=== PATIENT | male | born 1995 | race Two or more races ===

== ENCOUNTER 2024-09-01 14:07 | Emergency (ER) | payer MEDICAID, SELFPAY ==
[2024-09-01 14:20] VITALS: BP 165/98; PULSE 102; RESP 18; TEMP 36.9; O2SAT 96; BMI 56.7
--- NOTE | 2024-09-01 14:22 | EKG_ITS ---
[facility] Test Date: 2024-09-01 Pat Name: ROBBY HERRING Department: Room: - Gender: Male Assistant Media Buyer: : 1995 Requested By: Darnell Prince Order Number: [id number] Reading MD: Darnell Prince Measurements Intervals [place] Rate: 107 P: 36 AL: 150 QRS: -9 QRSD: 86 T: 12 QT: 324 QTc: 434 Interpretive Statements SINUS TACHYCARDIA ABNORMAL RHYTHM ECG Compared to ECG 01/13/2024 15:48:51 Sinus rhythm no longer present /store/S0/[id number].pdf
--- NOTE | 2024-09-01 14:23 | EDRME_ITS ---
Rapid Medical Screening Exam [facility] Arrival date/time: 09/01/24 14:07 29 yo m present to emergency room with c/o chest pain, n/v/d for 1 week I have greeted and performed a focused initial assessment of this patient. A comprehensive ED assessment and evaluation of the patient, analysis of all test results, and completion of the medical decision making process will be conducted by additional ED providers. Chief Complaint: Nausea/Vomiting/Diarrhea Time Seen by Provider: 09/01/24 14:16 Vital signs: Vital Signs Temperature 98.4 F 09/01/24 14:20 Pulse Rate 102 H 09/01/24 14:20 Respiratory Rate 18 09/01/24 14:20 Blood Pressure 165/98 H 09/01/24 14:20 Pulse Oximetry (%) 96 09/01/24 14:20 Oxygen Delivery Method Room Air 09/01/24 14:20
[2024-09-01] MEDS: ONDANSETRON ODT 4 MG TABRAP PO (14:28)
[2024-09-01 15:15] LABS: Basophils # (Auto) 0.1 Thou/mm3 (0.0-0.2); Basophils % (Auto) 1 % (0-2.5); Eosinophils # (Auto) 0.5 Thou/mm3 (0.0-0.5); Eosinophils % (Auto) 4 % (0-10); Hematocrit 42.6 % (41.0-53.0); Hemoglobin 13.9 g/dL (13.5-16.0); Immature Granulocytes % (Auto) 1 % (0-0); Immature Granulocytes Auto 0.15 Thou/mm3 (0.00-0.00); Lymphocytes # (Auto) 2.6 Thou/mm3 (1.0-4.8); Lymphocytes % (Auto) 21 % (10-50); Mean Corpuscular HGB Conc 32.6 g/dl (31.0-37.0); Mean Corpuscular Hemoglobin 28.5 pg (25.0-35.0); Mean Corpuscular Volume 87 fL (80-100); Monocytes % (Auto) 8 % (0-12); Neutrophils # (Auto) 8.1 Thou/mm3 (1.8-7.7); Neutrophils % (Auto) 65 % (37-80); Nucleated Red Blood Cell % 0 /100 WBC (0); Platelet Count 364 Thou/mm3 (140-440); RDW Standard Deviation 43.7 fL (35.1-43.9); Red Blood Count 4.88 Miln/mm3 (4.50-5.90); White Blood Count 12.4 Thou/mm3 (3.8-10.6)
[2024-09-01 15:26] LABS: Strep A Rapid Negative (Negative)
[2024-09-01 15:35] LABS: Alanine Aminotransferase 38 U/L (10-49); Albumin, Serum 4.3 gm/dL (3.5-5.0); Albumin/Globulin Ratio 1.4 (1.2-2.2); Alkaline Phosphatase 91 U/L (46-116); Anion Gap 7 (7-16); Aspartate Amino Transferase 24 U/L (0-34); BUN/Creatinine Ratio 14 Ratio (12-20); Bilirubin,Total 1.1 mg/dL (0.3-1.2); Blood Urea Nitrogen 13 mg/dL (9-23); Calcium 8.7 mg/dL (8.3-10.6); Calcium (Corrected) 8.7 mg/dL (8.5-10.1); Carbon Dioxide 30.4 mMol/L (20.0-31.0); Chloride 102 mMol/L (98-107); Creatinine (Component) 0.9 mg/dL (0.6-1.3); Estimated Creatinine Clearance 182.1 mL/min (>60); Globulin 3.1 gm/dL (2.3-3.5); Glucose 104 mg/dL (74-106); Lipase 29 U/L (12-53); Osmolality,Calculated 277 (275-295); Potassium 3.9 mMol/L (3.4-5.1); Sodium 139 mMol/L (136-145); Total Protein 7.4 gm/dL (5.7-8.2); Troponin I < 0.002 ng/mL (0.0-0.045); eGFR > 60 See Note
[2024-09-01 16:28] VITALS: BP 153/84; PULSE 87; RESP 18; TEMP 36.6; O2SAT 98
--- NOTE | 2024-09-01 16:34 | EDNOTE_ITS ---
Nausea/Vomit./Diarrhea-RME/HPI General Chief complaint: Nausea/Vomiting/Diarrhea Stated complaint: Vomiting X 1 week, nausea Time Seen by Provider: 09/01/24 14:16 Arrival date/time: 09/01/24 14:07 29 year old male present to emergency room with c/o of intermittent nausea,vomiting for 1 week LOCATION: generalized periumbical abdominal pain SEVERITY: Symptoms are described as being severe with limitations on activities of daily living QUALITY: Symptoms are described as being cramping CONTEXT: The patient is unable to identify any inciting events. DURATION/TIMING: The symptoms started approximately 7 day ago and have been constant this then, and have been progressive getting worse. ASSOCIATED SYMPTOMS: The patient is unable to identify any other associated symptoms. MODIFYING FACTORS: The patient is unable to identify any alleviating or aggravating symptoms. PERTINENT ROS: reports emesis is nonbloody, diarrhea is nonbloody, no recent foreign travel, no recent ingestion of raw seafood or meat, no head trauma, no headache, no chest pain, no orthostatis symptoms, denies any focal abdominal pain, denies any toxicological ingestions REVIEW OF SYSTEMS: See History of Present Illness - with the exception of those mentioned in the history of present illness, all other systems reviewed and repo rted as negative GENERAL: In general the patient is awake, interactive, in an emergency department gurney. HEAD/EYES/EARS/NOSE/THROAT: normo-cephalic, atraumatic, mucus membranes are moist, anicteric, palpebral conjunctiva is pink, trachea is midline. CARDIOVASCULAR: regular rate and regular rhythm, no murmurs, heart sounds are not distant, strong pulses in all four extremities that are equal and symmetric bilateral upper and lower extremities, normal capillary refill. CHEST/PULMONARY: normal chest rise and fall, good air movement, clear to auscultation bilaterally, normal inspiratory to expiratory ratios without evidence of respiratory distress. NECK: No midline/Paraspinal tenderness, no step off ROM/Strenght intact No Kernig and bruzinski sign. No trauma ABDOMEN: soft, not tender, no masses appreciated BACK: normal range of motion without pain. NEUROLOGICAL: cranio-facial features are symmetric, moves all four extremities equally without obvious limitations or weakness. EXTREMITY: no tenderness to palpation over the long bones or large joints of the bilateral upper and lower extremities, no joint swelling, no joint erythema, no signs of trauma, no unilateral leg swelling and no peripheral edema. SKIN: warm, dry, well-perfused, no jaundice, no rash, no telangiectasias or petechia. PSYCH: calm, cooperative, no evidence of psychosis or agitation RME / HPI RME / HPI Narrative: 09/01/24 14:07 29 yo m present to emergency room with c/o chest pain, n/v/d for 1 week I have greeted and performed a focused initial assessment of this patient. A comprehensive ED assessment and evaluation of the patient, analysis of all test results, and completion of the medical decision making process will be conducted by additional ED providers. Related Data Previous Rx's ?Medication ?Instructions ?Recorded amoxicillin 875 mg-potassium 1 tab PO Q12H #10 tabs clavulanate 125 mg tablet doxycycline monohydrate 100 mg 100 mg PO BID #10 caps 05/04/24 capsule Allergies Allergy/AdvReac Type Severity Reaction Status Date / Time No Known Allergies Allergy Verified 05/04/24 19:11 Course Course Course Narrative: Patient presenting with nausea, vomiting, and diarrhea.? Vital signs were reviewed.? Patient afebrile.? Abdominal exam is benign.? No evidence of acute surgical emergency or infection requiring antibiotics.? I considered biliary disease, bowel obstruction, colitis, mesenteric ischemia, appendicitis, urinary tract infection, infectious diarrhea, however, these are less likely given the history and exam.? While in ED patient was provided with zofran at which point patient stated that their symptoms had improved.. Advised to continue Ibuprofen and Tylenol at home as needed for pain/fever. Patient is to followup with primary physician if symptoms continue. Advised to return to the ER if concern for inability to tolerate PO intake, dehydration, or other concerns. Plan:?? Discharge from ETC Ibuprofen/Acetaminophen for Pain/Fever Pt was advised on supportive therapies, including increasing dietary fiber, eating smaller meals, refrain from eating copious amounts of irritating foods (fatty foods, milk products, chocolate, and caffeine), maintaining a food diary, advancing fluids as tolerated, refraining from EtOH consumption, decreasing stress, and increasing exercise. Maintain Fluid Intake: Pedialyte/Gatorade, Juice, Non-caffeinated Pop (Sprite) Patient to follow up with PCP or in ER should symptoms worsen or not improve. Patient verbally expressed understanding and all questions were addressed. Quality Measures none Orders Category Date Time Status Bedside Influenza A&B Antigen Test NOW Care 09/01/24 14:23 Completed EKG (ED ONLY) *Do not use* NOW Care 09/01/24 14:22 Completed EKG (ED Only) Stat Exams 09/01/24 14:22 Draft CBC Stat Lab 09/01/24 15:01 Completed CMP [Comprehensive Metabolic Panel] Stat Lab 09/01/24 15:01 Completed Lipase Stat Lab 09/01/24 15:01 Completed Strep A Rapid Stat Lab 09/01/24 14:47 Completed Troponin I Stat Lab 09/01/24 15:01 Completed Ondansetron Odt [Zofran Odt] Med 09/01/24 14:22 Discontinued 4 mg PO X1 ONE Vital Signs Vital signs: Vital Signs Temperature 98.4 F 09/01/24 14:20 Pulse Rate 102 H 09/01/24 14:20 Respiratory Rate 18 09/01/24 14:20 Blood Pressure 165/98 H 09/01/24 14:20 Pulse Oximetry (%) 96 09/01/24 14:20 Oxygen Delivery Method Room Air 09/01/24 14:20 Procedures -ED EKG Interpretation #1: Date of EK09/01/24 Rate: 107 Interpretation: Reviewed by me EKG Impression: No ischemic changes and Sinus tachycardia Nausea/Vomiting/Diarrhea Patient data External records reviewed:: [facility] previous records Clinical information provided by:: patient Social determinants that could affect healthcare access:: none Patient has the following chronic illnesses:: mpme How is presenting disease/condition affected by chronic disease/condition?: no chronic disease Evaluation data The following diagnostics were reviewed and interpreted by me:: lab results Lab and/or radiology exams considered but not ordered:: none Interpretation Summary: cbc/cmp/trop wnl limits Medications / Prescriptions Medications / Prescriptions considered but not ordered:: none Medication administrations:: Medication Administration History Discontinued Medications Ondansetron HCl (Ondansetron Odt 4 Mg Tabrap) 4 mg PO X1 ONE; Protocol Stop: 09/01/24 14:23 Last Admin: 09/01/24 14:28 Dose: 4 mg Documented By: OA as stated above Consultations Consultation(s) initiated? (list below): No Diagnosis Nausea Differential Diagnosis: traveler's diarrhea, food poisoning, gastroenteritis and dehydration Most likely diagnosis given after review of the tests above:: gastroenteritis Admission Indicated Admission indicated?: not indicated Admission Request Was there a request for admission?: No Disposition Plan Disposition Plan: Discharge Discharge Attestation Discharge Attestation: The patient and all family members were given an opportunity to ask questions and understood the discharge instructions. Discharge instructions specifically effects, indications for sooner follow up or return to the emergency department, and the expected course of current diagnosis. Patient condition: Stable Discharge Plan Plan Patient Disposition: HOME (Self Care) Health Concerns: Follow with PMD as directed Take tylenol or motrin as need Return to ED if sx worsen Prescriptions/Referrals Prescriptions/Med Rec: No Action amoxicillin-pot clavulanate 875-125 mg tablet 1 tab PO Q12H Qty: 10 0RF doxycycline monohydrate 100 mg capsule 100 mg PO BID Qty: 10 0RF Problem List Clinical Impression: Gastroenteritis Patient/Caregiver Discharge Instructions Education Materials: ED Gastroenteritis, Noninfectious Print Language: Indonesian Stand Alone Forms: Araceli Award Info., Patient Portal Info Letter
== END 2024-09-01 17:21 | disposition home or self-care (01) ==
PROVIDERS: Physician Assistant; Emergency Provider Emergency Medicine; PCP Nurse Practitioner Pediatrics
DX: K52.9 Noninfective gastroenteritis and colitis, unspecified (principal)
CPT/HCPCS: 36415; 80053; 83690; 84484; 85025; 87400; 87651; 93005; 99283; Q0162

== ENCOUNTER 2024-10-14 14:00 | Emergency (ER) | payer MEDICAID, SELFPAY ==
[2024-10-14 14:15] VITALS: BP 160/96; PULSE 105; RESP 18; TEMP 36.9; O2SAT 95; BMI 56.7
[2024-10-14 14:41] LABS: Collection Type, Urine Clean Catch
[2024-10-14 14:47] LABS: Bilirubin,Urine Negative (Negative); Blood,Urine Negative (Negative); Clarity,Urine Clear (Clear/Hazy); Color,Urine Lt-Yellow (Lt Yel-Yel); Culture Indicated,Urine Not Indicated; Glucose, Urine Negative (Negative); Ketones,Urine Negative (Negative); Leukocyte Esterase,Urine Negative (Negative); Nitrite,Urine Negative (Negative); PH,Urine 6.5 (5.0-7.0); Protein,Urine Negative (Neg - Trace); RBC,Urine < 1 /hpf (0-3); Specific Gravity,Urine 1.022 (1.001-1.035); Squamous Epithelial Cell,Urine < 1 /hpf (0-5); Urobilinogen,Urine Negative mg/dL (0.0-1.0); WBC,Urine 1 /hpf (0-5)
[2024-10-14 15:00] LABS: Strep A Rapid Negative (Negative)
[2024-10-14 15:04] LABS: Basophils # (Auto) 0.1 Thou/mm3 (0.0-0.2); Basophils % (Auto) 1 % (0-2.5); Eosinophils # (Auto) 0.5 Thou/mm3 (0.0-0.5); Eosinophils % (Auto) 5 % (0-10); Hematocrit 44.2 % (41.0-53.0); Immature Granulocytes % (Auto) 1 % (0-0); Immature Granulocytes Auto 0.15 Thou/mm3 (0.00-0.00); Lymphocytes # (Auto) 2.1 Thou/mm3 (1.0-4.8); Lymphocytes % (Auto) 20 % (10-50); Mean Corpuscular HGB Conc 31.7 g/dl (31.0-37.0); Mean Corpuscular Hemoglobin 27.9 pg (25.0-35.0); Mean Corpuscular Volume 88 fL (80-100); Monocytes # (Auto) 0.9 Thou/mm3 (0.0-0.8); Monocytes % (Auto) 9 % (0-12); Neutrophils # (Auto) 6.9 Thou/mm3 (1.8-7.7); Neutrophils % (Auto) 65 % (37-80); Nucleated Red Blood Cell % 0 /100 WBC (0); Platelet Count 348 Thou/mm3 (140-440); RDW Standard Deviation 44.4 fL (35.1-43.9); Red Blood Count 5.01 Miln/mm3 (4.50-5.90); White Blood Count 10.7 Thou/mm3 (3.8-10.6)
[2024-10-14 15:48] LABS: Alanine Aminotransferase 34 U/L (10-49); Albumin, Serum 4.1 gm/dL (3.5-5.0); Albumin/Globulin Ratio 1.4 (1.2-2.2); Alkaline Phosphatase 102 U/L (46-116); Anion Gap 7 (7-16); Aspartate Amino Transferase 21 U/L (0-34); BUN/Creatinine Ratio 13 Ratio (12-20); Bilirubin,Total 0.6 mg/dL (0.3-1.2); Blood Urea Nitrogen 12 mg/dL (9-23); Calcium 8.4 mg/dL (8.3-10.6); Calcium (Corrected) 8.4 mg/dL (8.5-10.1); Carbon Dioxide 27.7 mMol/L (20.0-31.0); Chloride 104 mMol/L (98-107); Creatinine (Component) 0.9 mg/dL (0.6-1.3); Estimated Creatinine Clearance 193.7 mL/min (>60); Glucose 118 mg/dL (74-106); Lipase 31 U/L (12-53); Osmolality,Calculated 278 (275-295); Potassium 4.1 mMol/L (3.4-5.1); Sodium 139 mMol/L (136-145); Total Protein 7.1 gm/dL (5.7-8.2); eGFR > 60 See Note
--- NOTE | 2024-10-14 15:54 | PD.EDADULT ---
ED General RME/HPI General Chief complaint: Nausea/Vomiting/Diarrhea Stated complaint: N/V/D, SORE THROAT, BODY ACHES X 2 DAYS Time Seen by Provider: 10/14/24 14:09 Arrival date/time: 10/14/24 14:00 29-year-old male presents to the emergency department today complaints of nausea vomiting generalized bodyaches and headache Limitations: no limitations Related Data Previous Rx's ?Medication ?Instructions ?Recorded amoxicillin 875 mg-potassium 1 tab PO Q12H #10 tabs 05/04/24 clavulanate 125 mg tablet doxycycline monohydrate 100 mg 100 mg PO BID #10 caps 05/04/24 capsule ibuprofen 800 mg tablet 800 mg PO TID PRN pain #30 tabs 10/14/24 ondansetron 4 mg disintegrating 4 mg PO Q8H PRN nausea and 10/14/24 tablet vomiting #10 tabs Allergies Allergy/AdvReac Type Severity Reaction Status Date / Time No Known Allergies Allergy Verified 10/14/24 14:05 Review of Systems Review of Systems Systems Reviewed: All systems reviewed, normal except as documented Constitutional Constitutional: Reports system reviewed and no additional complaints, except as documented, Reports body ache(s), Denies fever(s) and Reports headache(s) Eyes Eyes: Reports system reviewed and no additional complaints, except as documented and Denies blurry vision ENT Ears, Nose, Mouth, and Throat: Reports system reviewed and no additional complaints, except as documented, Reports headache(s), Denies nasal congestion and Denies nasal discharge Cardiovascular Cardiovascular: Reports system reviewed and no additional complaints, except as documented, Denies chest pain and Denies dyspnea Respiratory Respiratory: Reports system reviewed and no additional complaints, except as documented, Denies chest congestion, Denies cough and Denies dyspnea Gastrointestinal Gastrointestinal: Reports system reviewed and no additional complaints, except as documented, Reports abdominal pain, Reports loose stools and Reports nausea Integumentary/Breasts Skin/Breast: Reports system reviewed and no additional complaints, except as documented and Denies rash Neurologic Neurologic: Reports system reviewed and no additional complaints, except as documented, Reports as per HPI and Reports headache(s) Past Medical History Past Medical History CARDIAC: Negative Cardiac Disorders RESPIRATORY: Negative Asthma GENITOURINARY: Negative Renal Disease ENDOCRINE: Negative Diabetes Mellitus Type 2 HEMATOLOGIC: Negative Sickle Cell Disease Social History SMOKING STATUS: Current some day smoker SUBSTANCE USE: does not use ED Exam General Limitations: Present no limitations General appearance: Present alert and in no apparent distress Head Head exam: Present atraumatic Eye Eye exam: Present normal appearance, PERRL and EOMI ENT ENT exam: Present normal exam, normal oropharynx and mucous membranes moist Neck Neck exam: Present normal inspection, full ROM and trachea midline Chest Chest inspection: Present normal inspection and symmetric chest wall rise Respiratory Respiratory exam: Present normal lung sounds bilaterally Cardiovascular Cardiovascular exam: Present regular rate, normal rhythm and normal heart sounds Abdominal Exam Abdominal exam: Present soft and normal bowel sounds; Absent distention, tenderness, guarding, rebound, rigidity, Mitchell's sign or tenderness at McBurney's Point Abdominal tenderness: Absent RUQ or RLQ Extremities Exam Extremities exam: Present normal inspection and full ROM Back Exam Back exam: Present normal inspection and full ROM Neurological Exam Neurological exam: Present alert, oriented X3 and CN II-XII intact Psychiatric Psychiatric exam: Present normal affect and normal mood Skin Skin exam: Present warm, dry, intact and normal color Course Quality Measures none Orders Category Date Time Status Bedside Influenza A&B Antigen Test NOW Care 10/14/24 14:19 Completed CBC Stat Lab 10/14/24 14:50 Completed Comprehensive Metabolic Panel Stat Lab 10/14/24 14:50 Completed Lipase Stat Lab 10/14/24 14:50 Completed Strep A Rapid Stat Lab 10/14/24 14:37 Completed UA, C/S IF [Urinalysis, C/S if Indicated] Stat Lab 10/14/24 14:30 Completed Vital Signs Vital signs: Vital Signs Temperature 98.4 F 10/14/24 14:15 Pulse Rate 105 H 10/14/24 14:15 Respiratory Rate 18 10/14/24 14:15 Blood Pressure 160/96 H 10/14/24 14:15 Pulse Oximetry (%) 95 10/14/24 14:15 Oxygen Delivery Method Room Air 10/14/24 14:15 O2 saturation 95% room air within normal limits MDM Patient data External records reviewed:: [facility] previous records Clinical information provided by:: patient Social determinants that could affect healthcare access:: none Patient has the following chronic illnesses:: None How is presenting disease/condition affected by chronic disease/condition?: no chronic disease Evaluation data The following diagnostics were reviewed and interpreted by me:: lab results and radiology exam(s) Lab and/or radiology exams considered but not ordered:: Labs obtained Interpretation Summary: Review I Medications Medications considered but not ordered:: Given Medication administrations:: Given Consultations Consultation(s) initiated? (list below): No Diagnosis Differential Diagnosis ED Complaint MDM: Viral illness, influenza Most likely diagnosis given after review of the tests above:: Viral illness influenza Admission Indicated Admission indicated?: not indicated Explain why admission is indicated or not indicated:: No criteria Admission Request Was there a request for admission?: No Disposition Plan Disposition Plan: Discharge Discharge Attestation Discharge Attestation: The patient and all family members were given an opportunity to ask questions and understood the discharge instructions. Discharge instructions specifically effects, indications for sooner follow up or return to the emergency department, and the expected course of current diagnosis. Patient condition: Stable Medical Decision Making MDM Narrative MDM Narrative: 29-year-old male presents to the emergency department today complaints of nausea vomiting generalized bodyaches and headache On exam patient well-appearing patient is not appear ill or toxic patient does not appear in acute distress On exam patient is nontender abdomen Lab work obtained is unremarkable Patient tested positive for influenza which is consistent with her symptoms Patient discharged home in no distress to follow-up with primary care doctor in the next 24 to 48 hours and for any worsening symptoms to return to the ER immediately Differential Diagnosis Differential Diagnosis: Viral illness, influenza Medical Records Medical records reviewed: Yes I reviewed the patient's medical records. Lab Data Lab results reviewed: Yes I reviewed the patient's lab results. 10/14/24 14:50 10/14/24 14:50 Labs: Lab Results 10/14/24 10/14/24 10/14/24 Range/Units 14:30 14:37 14:50 WBC 10.7 H (3.8-10.6) Thou/mm3 RBC 5.01 (4.50-5.90) Miln/mm3 Hgb 14.0 (13.5-16.0) g/dL Hct 44.2 (41.0-53.0) % MCV 88 (80-100) fL MCH 27.9 (25.0-35.0) pg MCHC 31.7 (31.0-37.0) g/dl RDW Std Deviation 44.4 H (35.1-43.9) fL Plt Count 348 (140-440) Thou/mm3 Neut % (Auto) 65 (37-80) % Lymph % (Auto) 20 (10-50) % [place] % (Auto) 9 (0-12) % Eos % (Auto) 5 (0-10) % Baso % (Auto) 1 (0-2.5) % Neut # (Auto) 6.9 (1.8-7.7) Thou/mm3 Lymph # (Auto) 2.1 (1.0-4.8) Thou/mm3 [place] # (Auto) 0.9 H (0.0-0.8) Thou/mm3 Eos # (Auto) 0.5 (0.0-0.5) Thou/mm3 Baso # (Auto) 0.1 (0.0-0.2) Thou/mm3 Immature Gran # (Auto) 0.15 H (0.00-0.00) Thou/mm3 Absolute Nucleated RBC 0.00 (0.00-0.00) Thou/mm3 Immature Gran % 1 H (0-0) % Nucleated RBC % 0 (0) /100 WBC Sodium 139 (136-145) mMol/L Potassium 4.1 (3.4-5.1) mMol/L Chloride 104 (98-107) mMol/L Carbon Dioxide 27.7 (20.0-31.0) mMol/L Anion Gap 7 (7-16) BUN 12 (9-23) mg/dL Creatinine 0.9 (0.6-1.3) mg/dL Estim Creat Clear Calc 193.7 (>60) mL/min eGFR > 60 (60 - ) See Note BUN/Creatinine Ratio 13 (12-20) Ratio Glucose 118 H (74-106) mg/dL Calculated Osmolality 278 (275-295) Calcium 8.4 (8.3-10.6) mg/dL Corrected Calcium 8.4 L (8.5-10.1) mg/dL Total Bilirubin 0.6 (0.3-1.2) mg/dL AST 21 (0-34) U/L ALT 34 (10-49) U/L Alkaline Phosphatase 102 (46-116) U/L Total Protein 7.1 (5.7-8.2) gm/dL Albumin 4.1 (3.5-5.0) gm/dL Globulin 3.0 (2.3-3.5) gm/dL Albumin/Globulin Ratio 1.4 (1.2-2.2) Lipase 31 (12-53) U/L Ur Collection Type Clean Catch Urine Color Lt-Yellow (Lt Yel-Yel) Urine Clarity Clear (Clear/Hazy) Urine pH 6.5 (5.0-7.0) Ur Specific [place] 1.022 (1.001-1.035) Urine Protein Negative (Neg - Trace) Urine Glucose (UA) Negative (Negative) Urine Ketones Negative (Negative) Urine Blood Negative (Negative) Urine Nitrite Negative (Negative) Urine Bilirubin Negative (Negative) Urine Urobilinogen (Auto) Negative (0.0-1.0) mg/dL Ur Leukocyte Esterase Negative (Negative) Urine RBC < 1 (0-3) /hpf Urine WBC 1 (0-5) /hpf Ur Squamous Epith Cells < 1 (0-5) /hpf Urine Bacteria None (None) Ur Culture Indicated? Not Indicated Group A Strep Rapid Negative (Negative) Discharge Plan Plan Patient Disposition: HOME (Self Care) Disposition Comment: Stable Prescriptions/Referrals Prescriptions/Med Rec: New ibuprofen 800 mg tablet 800 mg PO TID PRN (Reason: pain) Qty: 30 0RF ondansetron 4 mg tablet,disintegrating 4 mg PO Q8H PRN (Reason: nausea and vomiting) Qty: 10 0RF No Action amoxicillin-pot clavulanate 875-125 mg tablet 1 tab PO Q12H Qty: 10 0RF doxycycline monohydrate 100 mg capsule 100 mg PO BID Qty: 10 0RF Referrals: No Primary/Family,Physician [Primary Care Provider] - In 1 week Problem List Clinical Impression: Influenza Patient/Caregiver Discharge Instructions Education Materials: ED Influenza (Adult) Additional Instructions: Please follow up with your primary care doctor in the next 24-48hrs for any worsening symptoms return here immediately Print Language: Danish Stand Alone Forms: Araceli Award Info., Work/School Release, Patient Portal Info Letter PA/HYDRAULIC SPECIALIST Supervising Physician PA/HYDRAULIC SPECIALIST Supervising Physician: Dr. [email or web address]
== END 2024-10-14 15:59 | disposition home or self-care (01) ==
PROVIDERS: Nurse Practitioner Primary Care; Emergency Provider Family Medicine
DX: J11.1 Influenza due to unidentified influenza virus with other respiratory manifestations (principal)
CPT/HCPCS: 36415; 80053; 81001; 83690; 85025; 87400; 87651; 99283

== ENCOUNTER 2024-12-02 15:55 | Emergency (ER) | payer MEDICAID, SELFPAY ==
[2024-12-02 15:56] VITALS: BMI 58.2
[2024-12-02 16:38] VITALS: BP 159/86; PULSE 105; RESP 20; TEMP 36.8; O2SAT 96
--- NOTE | 2024-12-02 16:53 | PD.EDRME ---
Rapid Medical Screening Exam [facility] Arrival date/time: 12/02/24 15:55 29-year-old male presents to the emergency department today for complaints of suicidal ideations patient reports that he has guns in his house patient states he has contemplated suicide Chief Complaint: Depression Vital signs: Vital Signs Temperature 98.3 F 12/02/24 16:38 Pulse Rate 105 H 12/02/24 16:38 Respiratory Rate 20 12/02/24 16:38 Blood Pressure 159/86 H 12/02/24 16:38 Pulse Oximetry (%) 96 12/02/24 16:38 Oxygen Delivery Method Room Air 12/02/24 16:38
[2024-12-02 17:56] LABS: Basophils # (Auto) 0.1 Thou/mm3 (0.0-0.2); Basophils % (Auto) 1 % (0-2.5); Eosinophils # (Auto) 0.5 Thou/mm3 (0.0-0.5); Eosinophils % (Auto) 4 % (0-10); Hematocrit 45.9 % (41.0-53.0); Hemoglobin 14.9 g/dL (13.5-16.0); Immature Granulocytes % (Auto) 1 % (0-0); Immature Granulocytes Auto 0.11 Thou/mm3 (0.00-0.00); Lymphocytes % (Auto) 22 % (10-50); Mean Corpuscular HGB Conc 32.5 g/dl (31.0-37.0); Mean Corpuscular Hemoglobin 28.7 pg (25.0-35.0); Mean Corpuscular Volume 88 fL (80-100); Monocytes # (Auto) 1.3 Thou/mm3 (0.0-0.8); Monocytes % (Auto) 9 % (0-12); Neutrophils # (Auto) 8.8 Thou/mm3 (1.8-7.7); Neutrophils % (Auto) 64 % (37-80); Nucleated Red Blood Cell % 0 /100 WBC (0); Platelet Count 407 Thou/mm3 (140-440); RDW Standard Deviation 45.4 fL (35.1-43.9); White Blood Count 13.7 Thou/mm3 (3.8-10.6)
[2024-12-02 18:06] LABS: Alcohol, Urine Negative (Negative); Amphetamine/Methamp Scrn,U Negative (Negative); Barbiturate Screen,Urine Negative (Negative); Benzodiazepines Screen,Urine Negative (Negative); Benzoylecgonine Screen, Ur Negative (Negative); Fentanyl Screen,Urine Negative (Negative); Opiate Screen,Urine Negative (Negative); THC Screen,Urine Negative (Negative)
[2024-12-02 18:20] LABS: Alanine Aminotransferase 63 U/L (10-49); Albumin, Serum 4.6 gm/dL (3.5-5.0); Albumin/Globulin Ratio 1.5 (1.2-2.2); Alkaline Phosphatase 92 U/L (46-116); Anion Gap 6 (7-16); Aspartate Amino Transferase 33 U/L (0-34); BUN/Creatinine Ratio 10 Ratio (12-20); Bilirubin,Total 0.9 mg/dL (0.3-1.2); Blood Urea Nitrogen 10 mg/dL (9-23); Calcium 8.8 mg/dL (8.3-10.6); Calcium (Corrected) 8.8 mg/dL (8.5-10.1); Carbon Dioxide 29.5 mMol/L (20.0-31.0); Chloride 105 mMol/L (98-107); Estimated Creatinine Clearance 156.2 mL/min (>60); Globulin 3.1 gm/dL (2.3-3.5); Glucose 92 mg/dL (74-106); Osmolality,Calculated 278 (275-295); Potassium 4.5 mMol/L (3.4-5.1); Sodium 140 mMol/L (136-145); Total Protein 7.7 gm/dL (5.7-8.2); eGFR > 60 See Note
--- NOTE | 2024-12-02 19:25 | EDNOTE_ITS ---
ED Psych RME/HPI General Chief Complaint: Depression Stated Complaint: SUICIDAL THOUGHT Time Seen by Provider: 12/02/24 23:16 Arrival date/time: 12/02/24 15:55 RME / HPI RME / HPI Narrative: 12/02/24 15:55 29-year-old male presents to the emergency department today for complaints of suicidal ideations patient reports that he has guns in his house patient states he has contemplated suicide --------- Dr. Lemus?s Main ED Evaluation: 29yo male presents to the ED for a chief complaint of SI. Patient states his dad in January of last year and has since been depressed. Patient states he's been having thought of SI since then, reporting they've persisted and gotten significantly worse, so he came in for evaluation. Patient does not have an active plan. Patient denies any HI or hallucinations. He denies overdosing on any medications. Related Data Previous Rx's ?Medication ?Instructions ?Recorded amoxicillin 875 mg-potassium 1 tab PO Q12H #10 tabs clavulanate 125 mg tablet doxycycline monohydrate 100 mg 100 mg PO BID #10 caps 05/04/24 capsule ibuprofen 800 mg tablet 800 mg PO TID PRN pain #30 t abs 10/14/24 ondansetron 4 mg disintegrating 4 mg PO Q8H PRN nausea and 10/14/24 tablet vomiting #10 tabs Allergies Allergy/AdvReac Type Severity Reaction Status Date / Time No Known Allergies Allergy Verified 12/02/24 15:58 Review of Systems Review of Systems Systems Reviewed: All systems reviewed, normal except as documented Past Medical History Past Medical History CARDIAC: Negative Cardiac Disorders RESPIRATORY: Negative Asthma GENITOURINARY: Negative Renal Disease ENDOCRINE: Negative Diabetes Mellitus Type 2 HEMATOLOGIC: Negative Sickle Cell Disease Social History SMOKING STATUS: Current some day smoker SUBSTANCE USE: does not use ED Exam Narrative Physical exam: GENERAL APPEARANCE: alert and oriented x 4, well-developed, well-nourished, no acute distress VITALS: All vitals were reviewed and the pulse ox is 96% on room air, which is normal according to my interpretation. HEENT: normocephalic, atraumatic NECK: supple LUNGS: no respiratory distress, normal effort HEART: good peripheral perfusion ABDOMEN: non distended EXTREMITIES: atraumatic NEUROLOGIC: awake; alert and oriented x4; cranial nerves II-XII grossly intact PSYCHIATRIC: depressed mood and affect SKIN: warm, dry, normal color; no rashes Course Quality Measures none Orders Category Date Time Status 1799 Psychiatric Hold NOW Care 12/03/24 00:15 Ordered Consult [employer] NOW Care 12/02/24 16:53 Active Acetaminophen Stat Lab 12/02/24 17:46 Completed Alcohol, Urine Stat Lab 12/02/24 17:17 Completed CBC Stat Lab 12/02/24 17:46 Completed CMP [Comprehensive Metabolic Panel] Stat Lab 12/02/24 17:46 Completed Drug Screen,Urine Stat Lab 12/02/24 17:17 Completed Salicylate Stat Lab 12/02/24 17:46 Completed Vital Signs Vital signs: Vital Signs Temperature 98.3 F 12/02/24 16:38 Pulse Rate 105 H 12/02/24 16:38 Respiratory Rate 20 12/02/24 16:38 Blood Pressure 159/86 H 12/02/24 16:38 Pulse Oximetry (%) 96 12/02/24 16:38 Oxygen Delivery Method Room Air 12/02/24 16:38 Psych MDM Narrative MDM Narrative:: Scribe Attestation: 12/02/24 Rachna Gaytan am scribing for and in the presence of Dr. Lemus. Patient first seen at 2320. Observation began at 2320 and was necessary in order to determine if the patient can be medically clear for crisis evaluation. Patient placed on a 1799 hold. Patient is medically clear for crisis evaluation. Upon reevaluation, observation revealed that the patient should be held in the ED until crisis evaluation in the morning. Observation time ended at 0600. Total time of observation: 6.5 hours. 0600: Care signed out to Dr. Whyte (emergency physician). Past medical, surgical, social and family history reviewed. Vitals and home medications reviewed. Results and treatment plan discussed. They will assume the care of the patient at this time and will follow the patient, pending crisis evaluation. Patient data External records reviewed:: [facility] previous records (Per chart review, patient was seen here on 10/14/24 for Influenza.) Clinical information provided by:: patient Social determinants that could affect healthcare access:: mental health Patient has the following chronic illnesses:: none How is presenting disease/condition affected by chronic disease/condition?: no chronic disease Evaluation data The following diagnostics were reviewed and interpreted by me:: lab results Lab and/or radiology exams considered but not ordered:: none Interpretation Summary: CMP is normal, UDS is negative, Acetaminophen is negative, Urine Alcohol is negative, according to my interpretation. Medications / Prescriptions Medications or Prescriptions considered but not ordered:: none Medication administrations:: none Consultations Consultation(s) initiated? (list below): No Diagnosis Psych Differential Diagnosis: suicidal ideation, depression and other (drug use, grief reaction) Most likely diagnosis given after review of the tests above:: see clinical impression below Admission Indicated Admission indicated?: not indicated Admission Request Was there a request for admission?: No Disposition Plan Disposition Plan: other (specify) (Signed out to Dr. Whyte at 0600 pending crisis evaluation.) Discharge Plan Prescriptions/Referrals Prescriptions/Med Rec: No Action ibuprofen 800 mg tablet 800 mg PO TID PRN (Reason: pain) Qty: 30 0RF ondansetron 4 mg tablet,disintegrating 4 mg PO Q8H PRN (Reason: nausea and vomiting) Qty: 10 0RF amoxicillin-pot clavulanate 875-125 mg tablet 1 tab PO Q12H Qty: 10 0RF doxycycline monohydrate 100 mg capsule 100 mg PO BID Qty: 10 0RF Referrals: No Primary/Family,Physician [Primary Care Provider] - In 1 week Problem List Clinical Impression: Suicidal ideation Patient/Caregiver Discharge Instructions Print Language: Sami
[2024-12-02 20:10] LABS: Acetaminophen < 2.0 mcg/mL (10.0-20.0); Salicylate < 3.0 mg/dL
[2024-12-02 20:58] VITALS: BP 132/83; PULSE 94; RESP 19; TEMP 36.6; O2SAT 97
[2024-12-03 06:00] VITALS: BP 148/89; PULSE 91; RESP 18; TEMP 36.6; O2SAT 96
[2024-12-03 07:58] VITALS: BP 135/77; PULSE 101; RESP 16; TEMP 36.6; O2SAT 98
--- NOTE | 2024-12-03 08:41 | EDNOTE_ITS ---
Emergency Room Addendum Addendum Narrative: 0600: Care assumed from Dr. Lemus, the previous shift emergency physician. Past medical, surgical, social and family history reviewed. Vitals and home medications reviewed. I will assume the care of the patient at this time, pending mental health evaluation. Patient has been medically cleared by previous physician. Please refer to the emergency department record for history and examination from initial visit.?The following addendum documentation note is intended to reflect any pending information, findings, or radiology results not included in the patient?s initial chart. 1040: ASW has met with the patient and has cleared to go home, safety plan was made with . States patient has an appointment scheduled with Dr. De Paz at [facility] tomorrow 12/04/2024 at 3:30 PM. Patient has remained stable through ED course. Will DC home.
[2024-12-03 10:43] VITALS: BP 159/86; PULSE 98; RESP 15; TEMP 36.5; O2SAT 95
--- NOTE | 2024-12-03 10:43 | PC.SS ---
SHU Guerrier met with the patient to complete and evaluation. Patient appears to be alert and oriented to self, place and situation. Patient is appropriate and able to engage in assessment. Patient presents hopeful and optimistic. Patient able to engage and be forthcoming on requesting connection to a mental health provider. Patient was asked what brought him to the Emergency Department yesterday. Patient reports he was brought in by his mother Virgen as he was having suicidal thoughts. The patient denies feeling suicidal today. Patient is also denying homicidal ideations. Patient is denying audio and visual hallucinations. Patient informs that although there is firearms in the home, they were removed yesterday from the home. The patient denies that he attempted to grab a gun in the home. Patient reports that he would not complete suicide as he has means to live, his son Eder. Patient reports that he also has family that he cares for and would not want to . Patient reports he lives at home with his girlfriend, Fanny and his son Eder. Patient confirmed home address and demographic information. Patient informs that he is independent with ADL?s, and denies use of DME. Per patient he is currently employed in [place]. Patient informs that he is not following up with primary care or mental health services at this time. Per patient, he has not been diagnosed. Patient denies medication intake or previous 5150 holds. Patient denies substance use and does not appear to be under the influence, he is observed to be coherent. Patient reports he has been battling with grieving the loss of his father last year in January 2024 and also untreated mental health, describing symptoms of depressions for the past month. Patient reports having good support from his mother, Virgen and his girlfriend Fanny. Per patient he would like someone to speak with regarding his mental health state. Patient would like to get connected to a mental health provider to get established. Per patient he has previously attempted to get connected however due to insurance or providers barriers, he never got established with care. Patient provided verbal consent to speak to his mother Virgen and girlfriend Fanny. In speaking with Virgen, she reports she is agreeable to safety plan if allowed as she wants patient to get mental health treatment. Fanny informs that she is okay with the patient returning home and agreeable with a safety plan. The family has already began to ensure a safety plan prior to patient?s arrival to the ED yesterday as they began to remove firearms from the home and began establishing safety for the patient immediately once they became aware of his mental state. After clinical consultation with RN DISEASE MANAGEMENT, Jen Oreilly, it was decided that the patient could be discharged on a safety plan with his mother, Virgen and girlfriend Fanny. Both parties agree that they will provide 72hr support to the patient and ensure safety means. All parties confirm that the firearms have been removed from the home, ensuring patient does not have access to weapons, medications or other hazardous items. Additionally, the patient has been scheduled for an appointment to follow up with [facility] on 12/03/24 at 3:45pm with Provider Baldev in [place] to follow up regarding his visit to the ED and get established with mental health services. Patient and family were also provided with community resources with information to mental health providers, crisis contact information and local law enforcement information in case of an emergency. Patient is also encouraged to return to the ED if there are worsening symptoms or the safety plan is no longer working. Patient and family verbalized understanding. ED attending provider Isabell, charge nurse Aubree, bed side nurse Elroy were updated on safety plan disposition.
== END 2024-12-03 10:54 | disposition home or self-care (01) ==
PROVIDERS: Nurse Practitioner Primary Care; Emergency Provider Emergency Medicine
DX: R45.851 Suicidal ideations (principal); F32.A Depression, unspecified; Z63.4 Disappearance and death of family member
CPT/HCPCS: 36415; 80053; 80307; 80320; 80329; 85025; 96127; 99284; G0480